=== PATIENT | female | born 2000 | race Caucasian/White ===

== ENCOUNTER 2021-02-07 19:42 | Emergency (ER) | payer SELFPAY ==
[2021-02-07] MEDS ORDERED: AMOX1TAB16 PO (19:59)
[2021-02-07] MEDS ORDERED: ACET-784 PO (19:59)
== END 2021-02-07 22:00 | disposition left against medical advice (07) ==
LOC: EMS 19:45
DX: R51.9 Headache, unspecified (principal); Z20.822 Contact with and (suspected) exposure to COVID-19